=== PATIENT | male | born 1965 | race Native Hawaiian/Other Pacific Islander ===

== ENCOUNTER 2022-06-30 11:46 | Emergency (ER) | payer OTHER ==
[~2022-06-30] VITALS: Ht 177.8 cm; Wt 72.6 kg
[2022-06-30 12:27] LABS: PLATELET COUNT 208 K/uL (142-355)
[2022-06-30 13:20] VITALS: BP 134/71; TEMP 97.9
== END 2022-06-30 13:20 | disposition home or self-care (01) ==
LOC: ED 11:46
PROVIDERS: Emergency Medicine
DX: R11.2 Nausea with vomiting, unspecified (principal); K52.89 Other specified noninfective gastroenteritis and colitis; Z20.822 Contact with and (suspected) exposure to COVID-19
CPT/HCPCS: 36415; 80053; 80320; 82150; 83690; 84484; 85027; 87502; 87635; 96361; 96374; 99284; J2405; U0003